=== PATIENT | female | born 1965 | race Caucasian/White ===

== ENCOUNTER → 2024-01-27 12:54 | Outpatient (REF) | payer OTHER, SELFPAY | LOC: HWRAD 12:54 | PROVIDERS: ATTENDING PHYSICIAN Physician Assistant; FAMILY PHYSICIAN Nurse Practitioner Adult Health | DX: Z78.0 Asymptomatic menopausal state (principal); E03.9 Hypothyroidism, unspecified | CPT/HCPCS: 76536; 77080 ==

== ENCOUNTER → 2024-03-09 12:00 | Outpatient (REF) | payer OTHER, SELFPAY | LOC: PAVMRI 12:00 | PROVIDERS: ATTENDING PHYSICIAN Nurse Practitioner Adult Health | DX: K86.2 Cyst of pancreas (principal); N28.1 Cyst of kidney, acquired | CPT/HCPCS: 74183; A9575 ==

== ENCOUNTER → 2024-08-27 07:21 | Outpatient (REF) | payer OTHER, SELFPAY | LOC: PAVMRI 07:21 | PROVIDERS: ATTENDING PHYSICIAN Nurse Practitioner Adult Health | DX: N28.89 Other specified disorders of kidney and ureter (principal); K86.2 Cyst of pancreas | CPT/HCPCS: 74183; A9575 ==

== ENCOUNTER 2025-02-20 18:42 | Emergency (ER) | payer OTHER, SELFPAY ==
[2025-02-20 18:50] VITALS: BP 172/95
[2025-02-20 19:08] VITALS: BP 141/82
[2025-02-20 19:16] LABS: % Basophils 0.4 % (0-2); % Eosinophils 0.4 % (0-6); % Immature Granulocytes 0.4 % (0-0.5); % Lymphocytes 16.8 % (20.5-51.1); % Monocytes 5.3 % (1.7-9.3); % Neutrophils 76.7 % (42.2-75.2); Absolute Basophils 0.1 10^3/uL (0-0.2); Absolute Eosinophils 0.1 10^3/uL (0-0.7); Absolute Immature Granulocytes 0.1 10^3/uL (0-0.05); Absolute Lymphocytes 2.2 10^3/uL (1.2-3.4); Absolute Monocytes 0.7 10^3/uL (0.1-0.6); Hematocrit 36.7 % (37.0-47.0); Hemoglobin 12.5 g/dL (12.0-16.0); Mean Corp Hgb Conc. 34.1 g/dL (33.0-37.0); Mean Corpuscular Hgb 29.9 pg (27.0-31.0); Mean Corpuscular Volume 87.8 fL (81.0-99.0); Mean Platelet Volume 9.8 fL (7.4-10.4); Nucleated Red Blood Cells % 0 %; Platelet Count 291 10^3/uL (130-400); Red Blood Cell Count 4.18 10^6/uL (4.20-5.40); Red Cell Dist. Width 12.1 % (11.5-14.5)
[2025-02-20 19:35] LABS: ALT (SGPT) 22 U/L (0-35); AST (SGOT) 22 U/L (14-36); Albumin 4.6 g/dl (3.5-5.0); Alkaline Phosphatase 64 U/L (38-126); Blood Urea Nitrogen 20 mg/dl (7-17); Calcium 9.5 mg/dl (8.4-10.2); Carbon Dioxide 27 mmol/L (22-30); Chloride 106 mmol/L (98-107); Glucose 203 mg/dl (70-99); Sodium 142 mmol/L (135-145); Total Bilirubin 0.5 mg/dl (0.2-1.3); Total Protein 7.5 g/dl (6.3-8.2); eGFR > 60.00
[2025-02-20 19:39] LABS: Troponin I < 0.012 ng/ml
[2025-02-20 20:00] VITALS: BP 141/81
[2025-02-20 20:01] LABS: D-Dimer 0.28 ug/mlFEU (0.00-0.50)
[2025-02-20 21:00] VITALS: BP 141/95
--- NOTE | 2025-02-20 21:13 | ED.GENMED ---
History of Present Illness
General
Chief Complaint: Chest Pain
Time Seen by Provider: 02/20/25 19:10
History of Present Illness
History of Present Illness:
60-year-old female with history of hypothyroidism, hypertension, hyperlipidemia, and [id number] diabetes presents the emergency department for evaluation of acute onset of chest discomfort and central back discomfort as well as headache
that began earlier this afternoon while at a birthday green party. She states the pain was rather sudden but is also quite minimal in severity, currently rates it 2-3 out of 10. Headache seems to have improved after ibuprofen. She did recently start
Mounjaro and wonders whether this could be acid reflux. She has never had similar pain. Nonpleuritic in nature. No associated nausea or vomiting, no associated upper extremity or lower extremity paresthesias/weakness. She is a non-smoker
Past History
Past History
ED Past Medical History: HTN, Hypercholesterolemia and Hypothyroidism
ED Past Surgical History: None
Social History
Tobacco: Former smoker
Alcohol: Occasional
Personal:
Living: with family
Employment: Employed
Family History
Family History: CAD (Father)
Review of Systems
Review of Systems
Allergies reviewed?: Yes
All Other Systems: ROS reviewed and negative except as documented in HPI and ROS
Phy Exam
Physical Exam
Physical Exam:
GEN: Well appearing, NAD, WDWN
HEENT: Oral mucosa moist, no scleral icterus
Cardiac: Regular rate and rhythm, no murmurs, radial pulses 2+ bilaterally
Lung: No respiratory distress, no tachypnea, lungs clear to auscultation bilaterally
MSK: No gross deformity or injuries, no reproducible midline back pain
Skin: Good color, no pallor or jaundice, no rashes
Neuro: AO x3, moves all extremities freely
Psych: Calm, cooperative
Scores
Heart Score for Chest Pain Patients
STEMI patient?: No
History: Slightly or Non-Suspicious
ECG: Normal
Age: >45 - <65 years
Risk Factors: >/= 3 Risk Factors or History of CAD
Troponin: </= Normal Limit
Heart Score for Chest Pain Patients: 3
Heart Score Risk: 2.5% MACE over next 6 weeks
Course
Orders/Labs/Results
Orders:
Orders
02/20/25 18:44
Electrocardiogram (*1) Urgent
Reason for Study: Chest Pain
EKG- Treatment ONCE
02/20/25 19:10
Complete Blood Count/With Diff Urgent
Comprehensive Metabolic Panel Urgent
Troponin I Urgent
02/20/25 19:40
D-Dimer Urgent
02/20/25 20:39
Calcium 200mg(Ca. Carb. 500mg) [Tums Chewable Tablet] 400 mg PO NOW STA
CR Chest - 2 Views Urgent
Comment:
Reason For Exam: chest pain
02/20/25 20:40
EKG- Treatment ONCE
02/20/25 21:15
Electrocardiogram (*1) Urgent
Reason for Study: Chest Pain
Troponin I Urgent
Abnormal Lab Results
02/20/25
19:10
WBC 13.0 H 10^3/uL
(4.8-10.8)
RBC 4.18 L 10^6/uL
(4.20-5.40)
Hct 36.7 L %
(37.0-47.0)
Abs Immat Gran (auto) 0.1 H 10^3/uL
(0-0.05)
Absolute Neuts (auto) 10.0 H 10^3/uL
(1.4-6.5)
Absolute Monos (auto) 0.7 H 10^3/uL
(0.1-0.6)
Neutrophils % 76.7 H %
(42.2-75.2)
Lymphocytes % 16.8 L %
(20.5-51.1)
BUN 20 H mg/dl
(7-17)
Glucose 203 H mg/dl
(70-99)
02/20/25 19:10
02/20/25 19:10
Vital Signs
Initial and Last Documented VS:
Initial Vital Signs
Temp Pulse Resp BP Pulse Ox
98.6 F 94 16 172/95 99
02/20/25 18:50 02/20/25 18:50 02/20/25 18:50 02/20/25 18:50 02/20/25 18:50
Last Documented Vital Signs
Temp Pulse Resp BP Pulse Ox
98.6 F 93 21 141/95 95
02/20/25 18:50 02/20/25 21:45 02/20/25 21:45 02/20/25 21:00 02/20/25 21:45
MDM/Problems Addressed
MDM/Problems Addressed:
Patient's workup is reassuring, her pain did gradually decrease while in the ED. Given the reported low severity coupled with lack of tobacco use and normal mediastinal silhouette on chest x-ray I have a low clinical suspicion for thoracic aortic
dissection. She has no neurologic symptoms that would make this highly suspected. Negative D-dimer essentially rules out pulmonary embolism. Certainly she does have CAD risk factors thus will refer to cardiology through the outpatient chest pain
hotline for close follow-up
*Critical Care Note
Total Time (30-74mins, 75-104mins- exclusive of procedures): Not Applicable
ED Attending Note
-
Portions of this chart may have been created with voice recognition software.� Occasional wrong word or��sound alike� substitutions may have occurred due to the inherent limitations of voice recognition software.
Discharge Plan
Departure
Patient Disposition: Home (Routine Discharge)
Date of Disposition: 02/20/25
Time of Disposition: 22:18
Patient with high blood pressure during this ER visit?: Yes
Discharge Problem:
Atypical chest pain
Instructions: Chest Pain DCA Follow Up
Prescriptions:
No Action
losartan 50 MG tablet
50 mg PO DAILY
Aspirin Low (Enteric Coated):
81 mg PO DAILY
levothyroxine 150 MCG tablet
225 mcg PO DAILY
docosahexaenoic acid-epa 1 CAP capsule
1 tab PO DAILY
rosuvastatin [Crestor] 10 MG tablet
10 mg PO DAILY
diclofenac sodium 75 MG tablet,delayed release (DR/EC)
75 mg PO BIDPRN PRN (Reason: pain. take with food.) Qty: 30 0RF
Referrals:
Cari Cowan CRNP [Family Provider, Internal Medicine]
Interventions
Interventions:
*Risk Screen - Suicide Last Done: 02/20/25 19:16
*General Assessment Last Done: 02/20/25 19:16
*Neglect/Abuse Screening Last Done: 02/20/25 19:16
*ED- Fall Risk Assessment Last Done: 02/20/25 19:16
*ED COVID-19 Vaccine History Last Done: 02/20/25 19:16
*Nursing Disposition Last Done: 02/20/25 22:35
ED- Cardiac Assessment Last Done: 02/20/25 19:17
Discharge Date and Time
Discharge Date/Time: 02/20/25 22:35
Print Language: URDU
[2025-02-20 21:45] LABS: Troponin I < 0.012 ng/ml
[2025-02-20] MEDS: TUMS CHEWABLE TABLET 400 MG PO (21:49)
== END 2025-02-20 22:35 | disposition home or self-care (01) ==
LOC: EMR 18:42
PROVIDERS: Physician Assistant; Student in an Organized Health Care Education/Training Program; EMERGENCY PHYSICIAN Emergency Medicine; FAMILY PHYSICIAN Nurse Practitioner Adult Health
DX: R07.89 Other chest pain (principal); E03.9 Hypothyroidism, unspecified; I10 Essential (primary) hypertension; E78.00 Pure hypercholesterolemia, unspecified; E11.9 Type 2 diabetes mellitus without complications; I25.10 Atherosclerotic heart disease of native coronary artery without angina pectoris; Z82.49 Family history of ischemic heart disease and other diseases of the circulatory system
CPT/HCPCS: 99283; 71046; 80053; 84484; 85025; 85379; 93005

== ENCOUNTER → 2025-08-09 07:30 | Outpatient (REF) | payer OTHER, SELFPAY | LOC: MRI 3T 07:30 | PROVIDERS: ATTENDING PHYSICIAN Specialist; FAMILY PHYSICIAN Nurse Practitioner Adult Health | DX: K86.2 Cyst of pancreas (principal); N28.1 Cyst of kidney, acquired | CPT/HCPCS: 74183; A9575 ==